=== PATIENT | male | born 1970 | race Caucasian/White ===

== ENCOUNTER 2018-04-13 07:17 | Emergency (ER) | payer BC ==
[2018-04-13 08:03] LABS: #Basophils 0.1 thou/uL (0.0-0.2); #Eosinphils 0.3 thou/uL (0.0-0.7); #Lymphocytes 1.5 thou/uL (1.20-3.40); #Monocytes 0.7 thou/uL (0.11-0.59); #Neutrophils 5.8 thou/uL (1.40-6.50); %Basophils 1.1 % (0.0-1.0); %Eosinophils 3.3 % (0.0-10.0); %Lymphocytes 17.5 % (21.0-51.0); %Monocytes 8.2 % (0.0-10.0); %Neutrophils 69.9 % (42.0-75.0); Hemoglobin 12.7 g/dL (14.0-18.0); Mean Corpuscular HGB CONC 32.5 g/dL (32.0-36.0); Mean Corpuscular Hemoglobin 28.2 pg (27.0-31.0); Mean Corpuscular Volume 86.6 fl (80.0-94.0); Mean Platelet Volume 7.9 fL (7.4-10.4); Platelet Count 219 thou/uL (130-400); RBC Distribution Width 14.5 % (11.5-14.5); Red Blood Cell (RBC) Count 4.52 mill/uL (4.70-6.10); White Blood Cell (WBC) Count 8.3 thou/uL (4.8-10.8)
--- NOTE | 2018-04-13 08:21 | RAD ---
CHEST 1 VIEW: Date: 04/13/18 HISTORY: Palpitations. Dyspnea. COMPARISON: 10/28/17. FINDINGS: Cardiac silhouette is magnified and upper limits of normal in size. Pulmonary vasculature is upper li mits of normal. The mediastinum is midline with aortic calcification. No confluent air space consolid ation or evidence of pneumothorax. quality assurance monitor leads overlie the chest. IMPRESSION: Atherosclerosis. No active cardiopulmonary abnormalities are otherwise demonstrated. POS: NICOLE
[2018-04-13 08:29] LABS: ALT (SGPT) 17 U/L (8-55); AST (SGOT) 16 U/L (5-34); Albumin 3.8 g/dL (3.5-5.0); Alkaline Phosphatase 83 U/L (40-150); Anion Gap 15 mmol/L (10-20); BUN (Urea Nitrogen) 25 mg/dL (8.9-20.6); Bilirubin, Total 0.5 mg/dL (0.2-1.2); CK (CPK) 124 U/L (30-200); Calc. Creatinine Clearance 0 mL/min (70-130); Calcium 9.5 mg/dL (7.8-10.44); Carbon Dioxide 20 mmol/L (22-29); Chloride 108 mmol/L (98-107); Estimated GFR-MDRD 67; Globulin 3.5 g/dL (2.4-3.5); Glucose 128 mg/dL (70-105); Potassium 4.7 mmol/L (3.5-5.1); Protein, Total 7.3 g/dL (6.0-8.3); Sodium 138 mmol/L (136-145)
[2018-04-13 08:34] LABS: Troponin I Less than 0.010 ng/mL (< 0.028)
--- NOTE | 2018-04-13 09:36 | CT ---
CT ARTERIOGRAM CHEST WITH IV CONTRAST AND 3D MIP IMAGING: HISTORY: Chest pain. Palpitations. Pulmonary emboli. COMPARISON: 10/28/17. FINDINGS: Low-density filling defects within the right lower lobe and middle lobe pulmonary arteries are smalle r and less pronounced than on the previous study. No filling defects are apparent within the left pu lmonary arteries. Mild scarring at the lung bases. Bovine origin of the great vessels from the aortic arch. Mild josy rial calcification. No pleural fluid or evidence of pneumothorax. No mediastinal adenopathy. IMPRESSION: Significant interval decrease in clot burden of pulmonary emboli. Small to moderate amou nt of residual chronic embolus remains at the right middle and right lower lobes. No new abnormaliti es are apparent. POS: NICOLE
[2018-04-13 10:58] LABS: INR-International Normal Ratio 2.7; PTT 52.5 SEC (22.9-36.1); Prothrombin Time 29.8 SEC (12.0-14.7)
[2018-04-13] MEDS ORDERED: Acetaminophen 500 MG TAB ONE (11:55)
[2018-04-13] MEDS ORDERED: Cyclobenzaprine 10 MG TAB ONE (13:28)
[2018-04-13] MEDS ORDERED: ISOVUE-370 76%-LOCM 1 ML ONE (16:15)
== END 2018-04-13 14:46 | disposition home or self-care (01) ==
LOC: ERS 07:17
DX: R06.02 Shortness of breath (principal); I10 Essential (primary) hypertension; E11.9 Type 2 diabetes mellitus without complications; I25.2 Old myocardial infarction; Z86.718 Personal history of other venous thrombosis and embolism; E78.5 Hyperlipidemia, unspecified; F32.9 Major depressive disorder, single episode, unspecified; Z79.01 Long term (current) use of anticoagulants; Z79.899 Other long term (current) drug therapy; Z79.84 Long term (current) use of oral hypoglycemic drugs; Z79.82 Long term (current) use of aspirin
CPT/HCPCS: 71045; 71275; 80053; 82550; 82553; 84484; 85025; 85610; 85730; 87040; 93005